=== PATIENT | female | born 1970 | race Caucasian/White ===

== ENCOUNTER 2017-04-11 02:06 | Emergency (ER) | payer SELFPAY ==
[2017-04-11] MEDS ORDERED: Nitroglycerin TAB 0.4 MG* 0.4 MG TAB SL PRN (02:15)
[2017-04-11] MEDS ORDERED: Aspirin Low Dose CHEW TAB* 81 MG PO ONE (02:15)
[2017-04-11 02:49] LABS: Hematocrit 40 % (35-47); Mean Corpuscular HGB Conc 33 g/dl (31-36); Mean Corpuscular Hemoglobin 29 pg (27-31); Mean Corpuscular Volume 88 fL (80-97); Mean Platelet Volume 10 um3 (7.4-10.4); Red Blood Count 4.49 10^6/ul (4.0-5.4); Red Cell Distribution Width 14 % (10.5-15); White Blood Count 8.4 10^3/ul (3.5-10.8)
[2017-04-11 03:02] LABS: Albumin 4.4 g/dL (3.2-5.2); BUN/Creatinine Ratio 17.1 (8-20); Calcium 9.2 mg/dL (8.6-10.3); EGFR African American 105.4 (>60); EGFR Non-African American 81.9 (>60); Globulin 2.8 g/dL (2-4); Potassium 3.3 mmol/L (3.5-5.0); Total Bilirubin 0.2 mg/dL (0.2-1.0); Total Protein 7.2 g/dL (6.4-8.9)
--- NOTE | 2017-04-11 03:14 | ED ---
Inocencio Rocha Claudia, scribed for Azeem Mccarty MD on 04/11/17 at 0218 . HPI Chest Pain - HPI Summary HPI Summary: 46 year old female presents to [facility] with CP. Pt notes she woke up with pain at about 01:15 this morning. She notes that she began having back pain, SOB, nausea and skin diaphoresis. Pt notes that she felt near syncope and then had her partner call EMS. Pt notes she felt fine before she went to bed this evening. Pt also denies any alleviating or aggravating factors at this time. Pt denies having any similar Sx in the past. Pt was given Zofran and Aspirin in EMS. - History of Current Complaint Chief Complaint: EDChestPainROMI Time Seen by Provider: 04/11/17 02:11 Hx Obtained From: Patient Onset/Duration: Started Hours Ago - 01:15am, Still Present Timing: Constant Chest Pain Location: Discrete at: Chest Pain Radiates To:: Back Aggravating Factor(s): Nothing Alleviating Factor(s): Nothing Associated Signs and Symptoms: Positive: Chest Pain, Shortness of Breath, Diaphoresis, Nausea - Allergy/Home Medications Allergies/Adverse Reactions: Allergies Allergy/AdvReac Type Severity Reaction Status Date / Time Erythromycin Allergy Hives/Diff. Verified 10/13/15 12:47 Breathing/I tching PMH/Surg Hx/FS Hx/Imm Hx Previously Healthy: Yes Endocrine/Hematology History: Denies: Hx Diabetes Respiratory History: Reports: Hx Asthma Psychiatric History: Reports: Hx Anxiety, Hx Depression Infectious Disease History: No Infectious Disease History: Denies: Traveled Outside the [place] in Last 30 Days - Family History Known Family History: Positive: Cardiac Disease - Social History Occupation: Employed Full-time Lives: With Family Alcohol Use: Occasionally Substance Use Type: Reports: None Smoking Status (MU): Former Smoker Have You Smoked in the Last Year: No Review of Systems Positive: Skin Diaphoresis Eyes: Negative ENT: Negative Positive: Chest Pain Positive: Shortness Of Breath Positive: Nausea Genitourinary: Negative Musculoskeletal: Negative Skin: Negative Neurological: Negative Psychological: Normal All Other Systems Reviewed And Are Negative: Yes Physical Exam Triage Information Reviewed: Yes Vital Signs On Initial Exam: Initial Vitals Temp Pulse Resp BP Pulse Ox 97.8 F 63 20 113/65 99 04/11/17 02:04/11/17 02:04/11/17 02:04/11/17 02:04/11/17 02:10 Vital Signs Reviewed: Yes Appearance: Positive: Well-Appearing, No Pain Distress Skin: Positive: Warm Head/Face: Positive: Normal Head/Face Inspection Eyes: Positive: AURY ENT: Positive: Hearing grossly normal Neck: Positive: Supple Respiratory/Lung Sounds: Positive: Clear to Auscultation, Breath Sounds Present Cardiovascular: Positive: RRR Abdomen Description: Positive: Nontender, Soft Bowel Sounds: Positive: Present Musculoskeletal: Positive: Strength/ROM Intact Neurological: Positive: Alert, Oriented to Person Place, Time Psychiatric: Positive: Affect/Mood Appropriate Diagnostics - Vital Signs Vital Signs Temp Pulse Resp BP Pulse Ox 04/11/17 02:10 97.8 F 63 20 113/65 99 - Laboratory Lab Results: Lab Results 04/11/17 04/11/17 04/11/17 Range/Units 02:33 02:33 02:33 WBC 8.4 (3.5-10.8) 10^3/ul RBC 4.49 (4.0-5.4) 10^6/ul Hgb 13.0 (12.0-16.0) g/dl Hct 40 (35-47) % MCV 88 (80-97) fL MCH 29 (27-31) pg MCHC 33 (31-36) g/dl RDW 14 (10.5-15) % Plt Count 290 (150-450) 10^3/ul MPV 10 (7.4-10.4) um3 Neut % (Auto) 51.0 (38-83) % Lymph % (Auto) 38.7 (25-47) % [place] % (Auto) 4.7 (1-9) % Eos % (Auto) 3.1 (0-6) % Baso % (Auto) 2.5 H (0-2) % Absolute Neuts (auto) 4.3 (1.5-7.7) 10^3/ul Absolute Lymphs (auto) 3.3 (1.0-4.8) 10^3/ul Absolute Monos (auto) 0.4 (0-0.8) 10^3/ul Absolute Eos (auto) 0.3 (0-0.6) 10^3/ul Absolute Basos (auto) 0.2 (0-0.2) 10^3/ul Absolute Nucleated RBC 0 10^3/ul Nucleated RBC % 0 Sodium 137 (133-145) mmol/L Potassium 3.3 L (3.5-5.0) mmol/L Chloride 104 (101-111) mmol/L Carbon Dioxide 24 (22-32) mmol/L Anion Gap 9 (2-11) mmol/L BUN 13 (6-24) mg/dL Creatinine 0.76 (0.51-0.95) mg/dL Est GFR ( Amer) 105.4 (>60) Est GFR (Non-Af Amer) 81.9 (>60) BUN/Creatinine Ratio 17.1 (8-20) Glucose 128 H (70-100) mg/dL Lactic Acid 1.8 (0.5-2.0) mmol/L Calcium 9.2 (8.6-10.3) mg/dL Total Bilirubin 0.20 (0.2-1.0) mg/dL AST 16 (13-39) U/L ALT 14 (7-52) U/L Alkaline Phosphatase 60 (34-104) U/L Troponin I 0.00 (<0.04) ng/mL Total Protein 7.2 (6.4-8.9) g/dL Albumin 4.4 (3.2-5.2) g/dL Globulin 2.8 (2-4) g/dL Albumin/Globulin Ratio 1.6 (1-3) Result Diagrams: 04/11/17 02:33 04/11/17 02:33 Lab Statement: Any lab studies that have been ordered have been reviewed, and results considered in the medical decision making process. - Radiology CXR Xray Interpretation: No Acute Changes - NO ACUTE CARDIOPULMONARY DISEASE Radiology Interpretation Completed By: ED Physician - EKG 02:34 Cardiac Rate: Bradycardia EKG Rhythm: Sinus Bradycardia - 58 beats/min Re-Evaluation - Re-Evaluation 1 Re-Evaluation Time: 06:46 Change: Improved - PT STATES THAT SHE IS FEELING BETTER Comment: pain free, results d/w pt Chest Pain Course/Dx - Course Assessment/Plan: MDM: AFTER 2 TROPONIN .00 AND .01 AND EKG AND CXR WITHIN NML LIMITS. THE PT WILL BE D/C HOME AND FOLLOW-UP WITH PCP. - Diagnoses Provider Diagnoses: Chest pain Discharge - Discharge Plan Condition: Stable Disposition: HOME Patient Education Materials: Chest Pain (ED) Referrals: Sheree Saavedra HOTBED OPERATOR [Primary Care Provider] - 2 Days The documentation as recorded by the Inocencio fuentes Claudia accurately reflects the service I personally performed and the decisions made by me, Azeem Mccarty MD.
[2017-04-11] MEDS ORDERED: Lidocaine 2% VISCOUS* 15 ML UDC PO ONE (04:47)
[2017-04-11] MEDS ORDERED: Al Hydrox/Mg Hydrox/Simet LIQ* 30 ML UDC PO ONE (04:47)
[2017-04-11] MEDS ORDERED: Al Hydrox/Mg Hydrox/Simet LIQ* 30 ML UDC ONE (05:01)
[2017-04-11 06:58] VITALS: BP 118/62
--- NOTE | 2017-04-11 07:54 | RAD ---
HISTORY: Chest pain COMPARISONS: July 15, 2005 VIEWS: 2: Frontal dual-energy and lateral views of the chest. FINDINGS: CARDIOMEDIASTINAL SILHOUETTE: The cardiomediastinal silhouette is normal. ARELY: The arely are normal. PLEURA: The costophrenic angles are sharp. No pleural abnormalities are noted. LUNG PARENCHYMA: The lungs are clear. ABDOMEN: The upper abdomen is clear. There is no subphrenic gas. BONES AND SOFT TISSUES: No bone or soft tissue abnormalities are noted. OTHER: None. IMPRESSION: NO ACTIVE CARDIOPULMONARY DISEASE.
== END 2017-04-11 06:58 | disposition home or self-care (01) ==
LOC: ED 02:06
DX: R07.9 Chest pain, unspecified (principal); R06.02 Shortness of breath; R11.0 Nausea; Z87.891 Personal history of nicotine dependence
CPT/HCPCS: 36415; 71020; 80053; 83605; 84484; 85025; 85379; 93005; 99283; A9270-GY

== ENCOUNTER 2018-02-23 01:27 | Emergency (ER) | payer BC ==
[2018-02-23] MEDS ORDERED: Ketorolac INJ* 30 MG/ML 1 ML VIAL IV PUSH ONE (01:53)
[2018-02-23] MEDS ORDERED: NS 0.9% 1000 ML* 1,000 ML IV ONE (01:53)
[2018-02-23] MEDS ORDERED: Ondansetron INJ* 2 MG/ML VIAL IV ONE (01:53)
[2018-02-23] MEDS ORDERED: Morphine VIAL* 4 MG/ML VIAL (1 ml vial) IV ONE ×2 (01:53→02:56)
[2018-02-23] MEDS ORDERED: Metoclopramide IV* 5 MG/ML 2 ML VIAL ONE (01:57)
[2018-02-23] MEDS ORDERED: Metoclopramide IV* 5 MG/ML 2 ML VIAL IV ONE (02:00)
[2018-02-23 02:10] LABS: ABS Basophils 0.1 10^3/ul (0-0.2); ABS Eosinophils 0.4 10^3/ul (0-0.6); ABS Lymphocytes 3.1 10^3/ul (1.0-4.8); ABS Monocytes 0.6 10^3/ul (0-0.8); ABS Neutrophils 7.5 10^3/ul (1.5-7.7); ABS Nucleated RBC 0 10^3/ul; Eosinophil % 3.2 % (0-6); Hematocrit 38 % (35-47); Hemoglobin 12.8 g/dl (12.0-16.0); Lymphocyte % 26.7 % (25-47); Mean Corpuscular HGB Conc 34 g/dl (31-36); Mean Corpuscular Hemoglobin 29 pg (27-31); Mean Corpuscular Volume 87 fL (80-97); Mean Platelet Volume 9.9 um3 (7.4-10.4); Nucleated Red Blood Cells % 0; Platelet Count 297 10^3/ul (150-450); Red Blood Count 4.38 10^6/ul (4.0-5.4); Red Cell Distribution Width 14 % (10.5-15); White Blood Count 11.7 10^3/ul (3.5-10.8)
[2018-02-23 02:32] LABS: EGFR Non-African American 84.1 (>60)
[2018-02-23] MEDS ORDERED: oxyCODONE/Acetamin 5/325 MG* TAB PO ONE (05:02)
--- NOTE | 2018-02-23 06:18 | ED ---
Guillermo Rocha Julia, scribed for El Washington MD on 02/23/18 at 0152 . Abdominal Pain/Female - HPI Summary HPI Summary: This patient is a 47 year old F presenting to [facility] with a chief complaint of sudden L flank pain for the past hour. She states she woke up in the middle of the night due pain. The patient rates the pain 10/10 in severity. Patient reports nausea and diarrhea. - History of Current Complaint Chief Complaint: EDFlankPain Stated Complaint: FLANK PAIN Time Seen by Provider: 02/23/18 01:50 Hx Obtained From: Patient Onset/Duration: Sudden Onset, Lasting Hours Timing: Constant Pain Intensity: 10 Pain Scale Used: 0-10 Numeric Location: Flank Character: Sharp Associated Signs and Symptoms: Positive: Vomiting, Diarrhea Allergies/Adverse Reactions: Allergies Allergy/AdvReac Type Severity Reaction Status Date / Time erythromycin base Allergy Hives/Diff. Verified 02/23/18 01:32 Breathing/I tching PMH/Surg Hx/FS Hx/Imm Hx Endocrine/Hematology History: Denies: Hx Diabetes Respiratory History: Reports: Hx Asthma Psychiatric History: Reports: Hx Anxiety, Hx Depression Infectious Disease History: No Infectious Disease History: Denies: Traveled Outside the [place] in Last 30 Days - Family History Known Family History: Positive: Cardiac Disease - Social History Alcohol Use: Occasionally Substance Use Type: Reports: None Smoking Status (MU): Former Smoker Have You Smoked in the Last Year: No Review of Systems Positive: Vomiting, Diarrhea Positive: flank pain All Other Systems Reviewed And Are Negative: Yes Physical Exam - Summary Physical Exam Summary: Appearance: Well-appearing, Well-nourished, Skin: Warm, dry, no obvious rash Eyes: sclera anicteric, no conjunctiva pallor ENT: mucous membranes moist, pharynx appears normal Neck: Supple, nontender Respiratory: Clear to auscultation, no signs of respiratory distress Cardiovascular: Normal S1, S2. No murmurs. Normal distal pulses in tibial and radial bilaterally. Abdomen: Soft, nontender, normal active bowel sounds present Musculoskeletal: Normal, Strength/ROM Intact Neurological: A&Ox3, awake and alert, mentation is normal, speech is fluent and appropriate Psychiatric: affect is normal, does not appear anxious or depressed Triage Information Reviewed: Yes Vital Signs On Initial Exam: Initial Vitals Temp Pulse Resp BP Pulse Ox 96.6 F 68 20 140/90 97 02/23/18 01:29 02/23/18 01:29 02/23/18 01:29 02/23/18 01:29 02/23/18 01:29 Vital Signs Reviewed: Yes Diagnostics - Vital Signs Vital Signs Temp Pulse Resp BP Pulse Ox 02/23/18 01:29 96.6 F 68 20 140/90 97 - Laboratory Lab Results: Lab Results 02/23/18 02/23/18 Range/Units 02:00 02:00 WBC 11.7 H (3.5-10.8) 10^3/ul RBC 4.38 (4.0-5.4) 10^6/ul Hgb 12.8 (12.0-16.0) g/dl Hct 38 (35-47) % MCV 87 (80-97) fL MCH 29 (27-31) pg MCHC 34 (31-36) g/dl RDW 14 (10.5-15) % Plt Count 297 (150-450) 10^3/ul MPV 9.9 (7.4-10.4) um3 Neut % (Auto) 64.0 (38-83) % Lymph % (Auto) 26.7 (25-47) % [place] % (Auto) 5.2 (0-7) % Eos % (Auto) 3.2 (0-6) % Baso % (Auto) 0.9 (0-2) % Absolute Neuts (auto) 7.5 (1.5-7.7) 10^3/ul Absolute Lymphs (auto) 3.1 (1.0-4.8) 10^3/ul Absolute Monos (auto) 0.6 (0-0.8) 10^3/ul Absolute Eos (auto) 0.4 (0-0.6) 10^3/ul Absolute Basos (auto) 0.1 (0-0.2) 10^3/ul Absolute Nucleated RBC 0 10^3/ul Nucleated RBC % 0 Sodium 138 L (139-145) mmol/L Potassium 3.7 (3.5-5.0) mmol/L Chloride 106 (101-111) mmol/L Carbon Dioxide 27 (22-32) mmol/L Anion Gap 5 (2-11) mmol/L BUN 18 (6-24) mg/dL Creatinine 0.74 (0.51-0.95) mg/dL Est GFR ( Amer) 108.2 (>60) Est GFR (Non-Af Amer) 84.1 (>60) BUN/Creatinine Ratio 24.3 H (8-20) Glucose 129 H (70-100) mg/dL Calcium 9.5 (8.6-10.3) mg/dL Total Bilirubin 0.20 (0.2-1.0) mg/dL AST 15 (13-39) U/L ALT 13 (7-52) U/L Alkaline Phosphatase 67 (34-104) U/L Total Protein 7.1 (6.4-8.9) g/dL Albumin 4.3 (3.2-5.2) g/dL Globulin 2.8 (2-4) g/dL Albumin/Globulin Ratio 1.5 (1-3) Beta HCG, Quant < 0.60 mIU/mL Result Diagrams: 02/23/18 02:00 02/23/18 02:00 Lab Statement: Any lab studies that have been ordered have been reviewed, and results considered in the medical decision making process. - CT A/P CT Interpretation Completed By: Radiologist Abdominal Pain Fem Course/Dx - Course Course Of Treatment: Pt felt better after MS and toradol, pain recurred but remitted spontaneously before oral meds could be given. I suspect she has passed the stone since her CT. She is feeling well now and can be discharged. - Diagnoses Differential Diagnosis: Positive: Abdominal Aortic Aneurysm, Diverticulitis, Renal Colic Provider Diagnoses: Renal colic on left side Discharge - Sign-Out/Discharge Documenting (check all that apply): Discharge/Admit/Transfer - Discharge Plan Condition: Improved Disposition: HOME Patient Education Materials: Kidney Stones (ED) Referrals: Zeinab Castaneda MD [Primary Care Provider] - Apolinar Ferrer MD [Medical Doctor] - - Billing Disposition and Condition Condition: IMPROVED Disposition: HOME The documentation as recorded by the Guillermo fuentes Julia accurately reflects the service I personally performed and the decisions made by me, El Washington MD.
[2018-02-23 06:20] VITALS: BP 126/78
--- NOTE | 2018-02-23 07:59 | RAD ---
CLINICAL HISTORY: Left flank pain, renal colic COMPARISON: None TECHNIQUE: Multiple contiguous axial CT scans were obtained of the abdomen and pelvis, without intravenous contrast enhancement. Coronal and sagittal multiplanar reformations are submitted for review. Oral contrast was not administered. FINDINGS: The study is limited by the lack of intravenous contrast. This limits evaluation of the solid organs and vasculature. LUNG BASES: The lung bases are clear. LIVER: The liver is normal in shape, size, contour, and attenuation. BILE DUCTS: There is no intrahepatic or extrahepatic biliary dilatation. GALLBLADDER: The gallbladder is normal, without pericholecystic inflammatory change. PANCREAS: The pancreas is normal, without mass or ductal dilatation. SPLEEN: Normal in size and appearance. UPPER GI TRACT: Evaluation of the gastrointestinal tract is limited by incomplete gastric distention. The upper GI tract is unremarkable. SMALL BOWEL AND MESENTERY: The small bowel is normal in contour, course, and caliber. There is no obstruction or dilatation. COLON: The colon is normal in contour, course, caliber. There is no pericolonic inflammatory change. ADRENALS: Normal bilaterally. KIDNEYS: There is a simple left renal cyst in the midpole measuring 2.9 cm. There is a 0.2 cm calculus of the left UVJ. There is mild left hydroureter with mild perinephric stranding anteriorly. There is a punctate calyceal stone of the upper pole of the right kidney. There is no hydronephrosis on the right.. BLADDER: As noted above, there is a left UVJ calculus. PELVIC ORGANS: The uterus and adnexa are grossly normal for technique. AORTA: The aorta is normal. IVC: Unremarkable LYMPH NODES: There is no lymphadenopathy by size criteria. ABDOMINAL WALL: There is no evidence for abdominal wall hernia. BONES AND SOFT TISSUES: There are mild diffuse degenerative changes. OTHER: None IMPRESSION: NEPHROLITHIASIS, INCLUDING A 0.2 CM LEFT UVJ STONE WITH MILD LEFT HYDROURETER.
== END 2018-02-23 06:27 | disposition home or self-care (01) ==
LOC: ED 01:27
DX: N20.2 Calculus of kidney with calculus of ureter (principal); R11.0 Nausea; R19.7 Diarrhea, unspecified; J45.909 Unspecified asthma, uncomplicated; F41.9 Anxiety disorder, unspecified; F32.9 Major depressive disorder, single episode, unspecified; Z88.1 Allergy status to other antibiotic agents; Z87.891 Personal history of nicotine dependence
CPT/HCPCS: 36415; 74176; 80053; 84702; 85025; 96374; 96375; 96376; 99285; A9270-GY; J1885; J2270; J2765